=== PATIENT | female | born 1960 | race Caucasian/White ===

== ENCOUNTER 2018-06-12 13:11 | Emergency (ER) | payer SELFPAY ==
[2018-06-12] MEDS ORDERED: Famotidine 20 MG TAB ONE (13:39)
[2018-06-12] MEDS ORDERED: diphenhydrAMINE 50 MG CAP ONE (13:39)
[2018-06-12] MEDS ORDERED: Dexamethasone 4 mg/ml Vial ONE (13:39)
== END 2018-06-12 13:46 | disposition home or self-care (01) ==
LOC: ERS 13:11
DX: L20.9 Atopic dermatitis, unspecified (principal); F17.210 Nicotine dependence, cigarettes, uncomplicated
CPT/HCPCS: 99282; J1100